=== PATIENT | male | born 1980 | race Two or more races ===

== ENCOUNTER 2017-06-21 12:18 | Emergency (ER) | payer MEDICAID ==
[~2017-06-21] VITALS: Ht 185.4 cm; Wt 117.9 kg
[2017-06-21 12:27] VITALS: BP 106/73
== END 2017-06-21 14:13 | disposition left against medical advice (07) ==
LOC: ER 12:18
DX: R51 Headache (principal); M79.605 Pain in left leg; Z53.21 Procedure and treatment not carried out due to patient leaving prior to being seen by health care provider

== ENCOUNTER 2017-08-04 10:42 | Emergency (ER) | payer MEDICAID ==
[~2017-08-04] VITALS: Ht 185.4 cm; Wt 99.8 kg
[2017-08-04 11:06] VITALS: BP 107/68
== END 2017-08-04 11:50 | disposition left against medical advice (07) ==
LOC: ER 10:42
DX: S51.012D Laceration without foreign body of left elbow, subsequent encounter (principal); X58.XXXD Exposure to other specified factors, subsequent encounter; Z53.21 Procedure and treatment not carried out due to patient leaving prior to being seen by health care provider

== ENCOUNTER 2017-08-05 00:34 | Emergency (ER) | payer MEDICAID ==
[~2017-08-05] VITALS: Ht 188 cm; Wt 99.8 kg
[2017-08-05 01:30] LABS: Basophils # (auto) 0.1 uL; Basophils % (auto) 0.8 % (0.0-2.0); Eosinophils # (auto) 0.3 uL; Eosinophils % (auto) 5.3 % (0.0-7.0); Hematocrit 42.1 % (41.0-53.0); Hemoglobin 13.9 g/dL (13.5-17.5); Lymphocytes # (auto) 2.6 uL; Lymphocytes % (auto) 42.2 % (10.0-50.0); Mean Corpuscular Hgb Conc. 33.2 g/dL (32.0-36.0); Mean Corpuscular Volume 90.5 fL (80.0-100.0); Mean Platelet Volume 7.9 fL (6.9-10.8); Monocytes # (auto) 0.4 uL; Monocytes % (auto) 6.9 % (0.0-12.0); Neutrophils # (auto) 2.8 uL; Neutrophils % (auto) 44.8 % (37.0-80.0); Nucleated Red Blood Cells % 0.1 %; Platelet Count (auto) 253 10^3/uL (140-450); Red Cell Distribution Width 13.6 % (11.8-14.3); White Blood Cell 6.2 10^3/uL (4.4-10.8)
[2017-08-05 01:42] LABS: BUN/Creatinine Ratio 11.8
[2017-08-05 01:47] LABS: Bilirubin, Total 0.3 mg/dL (0.2-1.0); Total Protein 7.8 g/dL (6.4-8.2)
[2017-08-05] MEDS ORDERED: SODIUM CHLORIDE 0.9% 1,000 ML IV ONE (04:15)
[2017-08-05] MEDS ORDERED: SODIUM CHLORIDE 0.9% 500 ML IV ONE (04:15)
[2017-08-05] MEDS ORDERED: THIAMINE HCL 100 MG/ML 2ML VIAL IV ONE (04:15)
[2017-08-05 06:02] VITALS: BP 118/52
== END 2017-08-05 06:00 | disposition home or self-care (01) ==
LOC: ER 00:54
DX: G92 Toxic encephalopathy (principal); R56.9 Unspecified convulsions; F10.10 Alcohol abuse, uncomplicated; F17.210 Nicotine dependence, cigarettes, uncomplicated; Z95.1 Presence of aortocoronary bypass graft
CPT/HCPCS: 36415; 80053; 80320; 85025; 93005; 94761; 96361; 96374; 99285; J3411

== ENCOUNTER 2017-09-15 12:40 | Emergency (ER) | payer MEDICAID ==
[~2017-09-15] VITALS: Ht 185.4 cm; Wt 104.3 kg
[2017-09-15 12:43] VITALS: BP 111/61
== END 2017-09-15 13:06 | disposition home or self-care (01) ==
LOC: ER 12:40
DX: S51.012D Laceration without foreign body of left elbow, subsequent encounter (principal); F17.210 Nicotine dependence, cigarettes, uncomplicated; Z95.1 Presence of aortocoronary bypass graft

== ENCOUNTER 2017-10-01 22:26 | Emergency (ER) | payer MEDICAID ==
[~2017-10-01] VITALS: Ht 177.8 cm; Wt 83.9 kg
[2017-10-02] MEDS ORDERED: traMADol HCL 50 MG TAB PO ONE (02:30)
[2017-10-02 02:32] VITALS: BP 114/72
== END 2017-10-02 03:05 | disposition home or self-care (01) ==
LOC: EDUNIT# 22:26 → EDBD 22:26 → ER 22:41
DX: S82.832D Other fracture of upper and lower end of left fibula, subsequent encounter for closed fracture with routine healing (principal); X58.XXXD Exposure to other specified factors, subsequent encounter; F17.210 Nicotine dependence, cigarettes, uncomplicated; Z95.1 Presence of aortocoronary bypass graft
CPT/HCPCS: 73590

== ENCOUNTER 2017-10-03 15:36 | Emergency (ER) | payer MEDICAID ==
[~2017-10-03] VITALS: Ht 185.4 cm; Wt 99.8 kg
[2017-10-03 16:46] LABS: Basophils # (auto) 0.1 uL; Basophils % (auto) 1.2 % (0.0-2.0); Eosinophils # (auto) 0.1 uL; Eosinophils % (auto) 2.5 % (0.0-7.0); Hematocrit 40.9 % (41.0-53.0); Hemoglobin 13.7 g/dL (13.5-17.5); Lymphocytes # (auto) 1.9 uL; Mean Corpuscular Hemoglobin 30.7 pg (28.0-32.0); Mean Corpuscular Hgb Conc. 33.5 g/dL (32.0-36.0); Mean Corpuscular Volume 91.7 fL (80.0-100.0); Mean Platelet Volume 7.3 fL (6.9-10.8); Monocytes # (auto) 0.5 uL; Monocytes % (auto) 8.3 % (0.0-12.0); Neutrophils # (auto) 3.1 uL; Nucleated Red Blood Cells % 0.2 %; Platelet Count (auto) 264 10^3/uL (140-450); White Blood Cell 5.7 10^3/uL (4.4-10.8)
[2017-10-03 16:49] LABS: Albumin 4.1 g/dL (3.4-5.0); BUN/Creatinine Ratio 16.1; Bilirubin, Total 0.3 mg/dL (0.2-1.0); Calcium 8.1 mg/dL (8.5-10.1); Potassium 3.9 mmol/L (3.5-5.1); Total Protein 8.2 g/dL (6.4-8.2)
[2017-10-03] MEDS ORDERED: HYDROcodone-ACET 10/325MG TAB PO ONE (17:15)
[2017-10-03 18:48] VITALS: BP 120/84
== END 2017-10-03 20:52 | disposition home or self-care (01) ==
LOC: ER 15:40
DX: S82.402A Unspecified fracture of shaft of left fibula, initial encounter for closed fracture (principal); R07.89 Other chest pain; F17.210 Nicotine dependence, cigarettes, uncomplicated; V89.2XXA Person injured in unspecified motor-vehicle accident, traffic, initial encounter; Y93.89 Activity, other specified; Y92.488 Other paved roadways as the place of occurrence of the external cause; Y99.8 Other external cause status
CPT/HCPCS: 29515; 36415; 71020; 80053; 84484; 85025; 93971

== ENCOUNTER 2018-01-19 23:41 | Emergency (ER) | payer MEDICAID ==
[~2018-01-19] VITALS: Ht 185.4 cm; Wt 99.8 kg
[2018-01-19 23:51] VITALS: BP 119/81
[2018-01-20] MEDS ORDERED: HYDROcodone-ACET 10/325MG TAB PO ONE (04:00)
== END 2018-01-20 05:27 | disposition home or self-care (01) ==
LOC: ER 23:44
DX: S60.221A Contusion of right hand, initial encounter (principal); F17.210 Nicotine dependence, cigarettes, uncomplicated; Z95.1 Presence of aortocoronary bypass graft; G89.29 Other chronic pain; X58.XXXA Exposure to other specified factors, initial encounter; Y93.89 Activity, other specified; Y92.89 Other specified places as the place of occurrence of the external cause; Y99.8 Other external cause status
CPT/HCPCS: 73120